=== PATIENT | female | born 1960 | race Caucasian/White ===

== ENCOUNTER 2020-09-09 11:24 | Emergency (ER) | payer BC, OTHER ==
--- OUTSIDE RECORDS SUMMARY | 2020-09-09 11:26 | XMS REPORT | Continuity of Care Document ---
:1960 Author Organization [facility] t Address [address] Estrada [address] [place] [id number] Care Team Providers Name Role Phone Unavailable Unavailable Unavailable Payers Payer Name Policy Type Policy Number Effective Date Expiration Date S ource Problems This patient has no known problems. Allergies, Adverse Reactions, Alerts This patient has no known allergies or adverse reactions. Medications This patient has no known medications. Procedures This patient has no known procedures. Results This patient has no known results.
[2020-09-09] MEDS ORDERED: HYDROCODONE/CHLORPHEN 5 ML/OSYR ONE (13:13)
--- NOTE | 2020-09-09 14:18 | RAD REPORT ---
EXAM DESCRIPTION: CT - Chest For Pe Angio - 09/09/2020 1:43 pm CLINICAL HISTORY: Chest pain. Chest pain;Cough COMPARISON: No comparisons TECHNIQUE: CT angiogram of the pulmonary arteries was performed with MIP. All CT scans are performed using dose optimization technique as appropriate and may include automated exposure control or mA/KV adjustment according to patient size. FINDINGS: No evidence of pulmonary thromboembolism. No acute aortic finding demonstrated. Moderately severe airspace opacities are present in both lung bases, nonspecific but would be compati ble with COVID-19 infection. No significant pericardial or pleural fluid. No concerning bony finding. IMPRESSION: No evidence of pulmonary thromboembolism. Moderately severe airspace opacities are present in both lung bases, nonspecific but would be compati ble with COVID-19 infection.
--- NOTE | 2020-09-09 14:56 | ER ---
Nurse's Notes [facility] Name: Mohan Gallo Age: 60 yrs Sex: Female : 1960 Arrival Date: 09/09/2020 Time: 11:27 Bed 5 Private MD: Brian Whelan Diagnosis: Pneumonia due to SARS-associated coronavirus Presentation: 09/09 12:00 Chief complaint: Patient states: Positive COVID-19 and negative chest x-ray at [facility] aa5 1 week ago. Pt states "I thought I was getting better but I am coughing, short of breath, my chest hurts, and I started with a fever again yesterday". 12:00 Coronavirus screen: Client presents with at least one sign or symptom that may indicate aa5 coronavirus-19. Standard/surgical mask placed on the client. Provider contacted for isolation considerations. Client reports previous positive COVID test result. Ebola Screen: Patient negative for fever greater than or equal to 101.5 degrees Fahrenheit, and additional compatible Ebola Virus Disease symptoms. Initial Sepsis Screen: Does the patient meet any 2 criteria? RR > 20 per min. HR > 90 bpm. Yes Does the patient have a suspected source of infection? Yes: Productive cough/pneumonia. Risk Assessment: Do you want to hurt yourself or someone else? Patient reports no desire to harm self or others. Onset of symptoms was August 2020. 12:00 Acuity: MATTEO 2 aa5 12:00 Method Of Arrival: Ambulatory aa5 Historical: - Allergies: 12:00 PENICILLINS; aa5 - PMHx: 12:00 Hypertension; Asthma; Thyroid problem; aa5 Screenin:31 Abuse screen: Denies threats or abuse. Nutritional screening: No deficits noted. em Tuberculosis screening: No symptoms or risk factors identified. Fall Risk None identified. Assessment: 12:50 General: Appears in no apparent distress. uncomfortable, Behavior is calm, cooperative, em appropriate for age, Reports fever for 12-24 hours, reports she is covid pos. with chest tightness and cough since last Saturday . Pain: Denies pain. Neuro: Level of Consciousness is awake, alert, obeys commands, Oriented to person, place, time, situation, Appropriate for age. Cardiovascular: Rhythm is sinus tachycardia. Respiratory: Reports shortness of breath at rest cough that is non-productive, Airway is patent Respiratory effort is even, unlabored, Respiratory pattern is regular, symmetrical, Breath sounds are diminished bilaterally. the patient has mild shortness of breath. Derm: Skin is intact, is healthy with good turgor, Skin is pink, warm \\T\\ dry. Musculoskeletal: Capillary refill < 3 seconds, Range of motion: intact in all extremities. 14:42 Reassessment: Patient appears in no apparent distress at this time. Patient and/or em family updated on plan of care and expected duration. Pain level reassessed. Patient is alert, oriented x 3, equal unlabored respirations, skin warm/dry/pink. Vital Signs: 12:00 BP 134 / 68; Pulse 105; Resp 26 S; Temp 100.5(O); Pulse Ox 92% on R/A; Weight 116.57 kg aa5 (R); Height 5 ft. 1 in. (154.94 cm) (R); Pain 7/10; 13:00 BP 120 / 62; Pulse 93; Resp 20; Pulse Ox 93% on R/A; em 12:00 Body Mass Index 48.56 (116.57 kg, 154.94 cm) aa5 ED Course: 11:27 Patient arrived in ED. ag5 11:27 Brian Whelan MD is Private Physician. ag5 11:53 Florence Burk[facility]C [facility]. snw 11:54 Chemo Evans MD is Attending Physician. snw 12:00 Arm band placed on Patient placed in an exam room, on a stretcher. aa5 12:00 Patient has correct armband on for positive identification. Placed in gown. Bed in low aa5 position. Call light in reach. Side rails up X2. 12:14 Anibal Leiva, TEMO is Primary Nurse. em 12:16 Triage completed. aa5 13:05 Inserted saline lock: 22 gauge in right antecubital area, using aseptic technique. em Blood collected. 13:44 CT Chest For PE Angio In Process Unspecified. EDMS 14:55 Brian Whelan MD is Referral Physician. snw 15:29 No provider procedures requiring assistance completed. IV discontinued, intact, em bleeding controlled, No redness/swelling at site. Pressure dressing applied. Administered Medications: 13:00 Drug: Tussionex Pennkinetic ER 5 ml Route: PO; em 13:55 Follow up: Response: No adverse reaction; Marked relief of symptoms em 15:28 Drug: SOLU-Medrol 80 mg Route: IM; Site: right gluteus; em 15:33 Follow up: Response: No adverse reaction em Outcome: 14:55 Discharge ordered by MD. lara 15:29 Discharged to home ambulatory. em 15:29 Condition: stable 15:29 Discharge instructions given to patient, Instructed on discharge instructions, follow up and referral plans. medication usage, Demonstrated understanding of instructions, follow-up care, medications, Prescriptions given X 1. 15:34 Patient left the ED. em Signatures: Dispatcher [employer] EDMS Florence Burkett, ALFIE-C PRODUCTION EXPEDITER-Donaw Anibal Leiva RN RN Julissa Peña RN RN aa5 Tiffanie Crouch ag5 Corrections: (The following items were deleted from the chart) 12:17 12:00 BP 134 / 68; Pulse 105bpm; Resp 18bpm; Spontaneous; Pulse Ox 92% RA; Temp 100.5F aa5 Oral; 116.57 kg Reported; Height 5 ft. 1 in. Reported; BMI: 48.5; Pain 7/10; aa5
--- NOTE | 2020-09-09 14:56 | EDPHYS ---
Physician Documentation [facility] Name: Mohan Gallo Age: 60 yrs Sex: Female : 1960 Arrival Date: 09/09/2020 Time: 11:27 Bed 5 Private MD: Brian Whelan ED Physician Chemo Evans HPI: 09/09 14:17 This 60 yrs old Female presents to ER via Ambulatory with complaints of snw Breathing Difficulty, COVID+. 14:17 The patient has shortness of breath at rest, worsens with cough. Onset: The snw symptoms/episode began/occurred gradually, and became persistent. Duration: The symptoms are continuous. The patient's shortness of breath is aggravated by coughing. Associated signs and symptoms: Pertinent positives: chest pain, non-productive cough, fever. Severity of symptoms: At their worst the symptoms were moderate. dx with CoVid 19 last week. Tx with course of zithromax and 7 days of decadron. finished today. as noted. Historical: - Allergies: 12:00 PENICILLINS; aa5 - PMHx: 12:00 Hypertension; Asthma; Thyroid problem; aa5 ROS: 14:15 Constitutional: Negative for fever, chills, and weight loss, Eyes: Negative for injury, snw pain, redness, and discharge, ENT: Negative for injury, pain, and discharge, Neck: Negative for injury, pain, and swelling, Cardiovascular: Negative for chest pain, palpitations, and edema, Respiratory: Positive for shortness of breath, cough, wheezing, and pleuritic chest pain, Abdomen/GI: Negative for abdominal pain, nausea, vomiting, diarrhea, and constipation, Back: Negative for injury and pain, : Negative for injury, bleeding, discharge, and swelling, MS/Extremity: Negative for injury and deformity, Skin: Negative for injury, rash, and discoloration, Neuro: Negative for headache, weakness, numbness, tingling, and seizure, Psych: Negative for depression, anxiety, suicide ideation, homicidal ideation, and hallucinations. Exam: 14:12 Head/Face: Normocephalic, atraumatic. Eyes: Pupils equal round and reactive to light, snw extra-ocular motions intact. Lids and lashes normal. Conjunctiva and sclera are non-icteric and not injected. Cornea within normal limits. Periorbital areas with no swelling, redness, or edema. ENT: Nares patent. No nasal discharge, no septal abnormalities noted. Tympanic membranes are normal and external auditory canals are clear. Oropharynx with no redness, swelling, or masses, exudates, or evidence of obstruction, uvula midline. Mucous membranes moist. Neck: Trachea midline, no thyromegaly or masses palpated, and no cervical lymphadenopathy. Supple, full range of motion without nuchal rigidity, or vertebral point tenderness. No Meningismus. Chest/axilla: Normal chest wall appearance and motion. Nontender with no deformity. No lesions are appreciated. Cardiovascular: Regular rate and rhythm with a normal S1 and S2. No gallops, murmurs, or rubs. Normal PMI, no JVD. No pulse deficits. 14:12 Abdomen/GI: Soft, non-tender, with normal bowel sounds. No distension or tympany. No guarding or rebound. No evidence of tenderness throughout. Back: No spinal tenderness. No costovertebral tenderness. Full range of motion. Skin: Warm, dry with normal turgor. Normal color with no rashes, no lesions, and no evidence of cellulitis. MS/ Extremity: Pulses equal, no cyanosis. Neurovascular intact. Full, normal range of motion. Neuro: Awake and alert, GCS 15, oriented to person, place, time, and situation. Cranial nerves II-XII grossly intact. Motor strength 5/5 in all extremities. Sensory grossly intact. Cerebellar exam normal. Normal gait. Psych: Awake, alert, with orientation to person, place and time. Behavior, mood, and affect are within normal limits. 14:12 Constitutional: The patient appears alert, awake. 14:12 Respiratory: the patient does not display signs of respiratory distress, Respirations: normal, Breath sounds: bronchial sounds, that are moderate, are heard diffusely, SpO2 93-94% room air. Vital Signs: 12:00 BP 134 / 68; Pulse 105; Resp 26 S; Temp 100.5(O); Pulse Ox 92% on R/A; Weight 116.57 kg aa5 (R); Height 5 ft. 1 in. (154.94 cm) (R); Pain 7/10; 13:00 BP 120 / 62; Pulse 93; Resp 20; Pulse Ox 93% on R/A; em 12:00 Body Mass Index 48.56 (116.57 kg, 154.94 cm) aa5 MDM: 12:06 Patient medically screened. snw 15:01 Data reviewed: vital signs, nurses notes. Data interpreted: Pulse oximetry: on room air snw is 93 %. Interpretation: acceptable. Counseling: I had a detailed discussion with the patient and/or guardian regarding: the historical points, exam findings, and any diagnostic results supporting the discharge/admit diagnosis, radiology results, the need for outpatient follow up, to return to the emergency department if symptoms worsen or persist or if there are any questions or concerns that arise at home. 09/09 15:29 Order name: CREATININE WHOLE BLOOD; Complete Time: 15:34 EDMS 09/09 12:46 Order name: CT Chest For PE Angio; Complete Time: 14:20 snw 09/09 12:50 Order name: Labs - recollect needed: green top for CT; Complete Time: 13:06 iw Administered Medications: 13:00 Drug: Tussionex Pennkinetic ER 5 ml Route: PO; em 13:55 Follow up: Response: No adverse reaction; Marked relief of symptoms em 15:28 Drug: SOLU-Medrol 80 mg Route: IM; Site: right gluteus; em 15:33 Follow up: Response: No adverse reaction em Disposition: 18:04 Co-signature as Attending Physician, Chemo Evans MD I agree with the assessment and kdr plan of care. Disposition: 09/09/20 14:55 Discharged to Home. Impression: Pneumonia due to SARS-associated coronavirus. - Condition is Stable. - Discharge Instructions: Severe Acute Respiratory Syndrome (SARS), Aspirin and Your Heart, Rehydration, Adult, COVID-19. - Prescriptions for Prednisone 20 mg Oral Tablet - take 2 tablet by ORAL route once daily for 5 days; 10 tablet. - Medication Reconciliation Form, Thank You Letter, Antibiotic Education, Prescription Opioid Use form. - Follow up: Emergency Department; When: As needed; Reason: Worsening of condition. Follow up: Brian Whelan MD; When: 7 - 10 days; Reason: Recheck today's complaints, Continuance of care, Re-evaluation by your physician. Signatures: Dispatcher [employer] [facility] Chemo Evans MD MD kdr Waters, Shelly, FENCE INSTALLER FOREMAN-C FENCE INSTALLER FOREMAN-Donaw Anibal Leiva, RN RN Parul Kincaid RN RN iw Julissa Irizarry, RN RN aa5 Corrections: (The following items were deleted from the chart) 15:34 14:55 09/09/2020 14:55 Discharged to Home. Impression: Pneumonia due to SARS-associated em coronavirus. Condition is Stable. Forms are Medication Reconciliation Form, Thank You Letter, Antibiotic Education, Prescription Opioid Use. Follow up: Emergency Department; When: As needed; Reason: Worsening of condition. Follow up: Brian Whelan; When: 7 - 10 days; Reason: Recheck today's complaints, Continuance of care, Re-evaluation by your physician. snw
[2020-09-09] MEDS ORDERED: METHYLPREDNISOLONE 40 MG INJ ONE (15:36)
[2020-09-09 15:45] VITALS: TEMP 100.5
[2020-09-09 15:46] VITALS: BP 120/62; O2SAT 93
== END 2020-09-09 15:34 | disposition home or self-care (01) ==
LOC: ER 11:24
DX: U07.1 COVID-19 (principal); J12.89 Other viral pneumonia; I10 Essential (primary) hypertension; Z88.0 Allergy status to penicillin
CPT/HCPCS: 82565; 71275; 96372; 99284; Q9967; J2920

== ENCOUNTER 2020-09-11 10:01 | Emergency (ER) | payer BC, OTHER ==
--- OUTSIDE RECORDS SUMMARY | 2020-09-11 10:02 | XMS REPORT | Continuity of Care Document ---
:1960 Author Organization [facility] t Address [address] Estrada [address] [place] [address] Care Team Providers Name Role Phone Unavailable [...]
[2020-09-11 12:28] LABS: Absolute Lymphocytes (CBC) 0.9 K/uL (0.7-4.9); Basophils % 0.2 % (0-1.3); Hematocrit 40.1 % (36.0-45.0); Lymphocytes % 5.6 % (15.3-44.8); MPV 7.8 fL (7.6-11.3); RBC Red Blood Cell Count 4.72 M/uL (3.86-4.86)
[2020-09-11] MEDS ORDERED: METHYLPREDNISOLONE 125 MG INJ ONE (12:38)
[2020-09-11] MEDS ORDERED: MAGNESIUM SULFATE 1 gm IVPB 1 GM/100 ML BAG IV ONE (12:39)
[2020-09-11] MEDS ORDERED: LEVALBUTEROL 1.25 MG/3 ML NEB ONE (12:39)
[2020-09-11] MEDS ORDERED: ACETAMINOPHEN 325 MG TABLET ONE (12:39)
[2020-09-11 12:50] LABS: Bilirubin Total 0.4 mg/dL (0.2-1.0); C-Reactive Protein 56.1 mg/L (<3.00); Potassium 4.6 mmol/L (3.5-5.1); Protein, Total 8.2 g/dL (6.4-8.2)
[2020-09-11 13:11] LABS: Blood Morphology Comment NOT SEEN (NOT SEEN); Platelet Estimate ADEQ; White Blood Cell Scan OK (OK)
[2020-09-11] MEDS ORDERED: NA CHLORIDE 0.9% 1,000 ML ONE (13:14)
--- NOTE | 2020-09-11 13:21 | RAD REPORT ---
EXAM DESCRIPTION: RAD - Chest Single View - 09/11/2020 12:21 pm CLINICAL HISTORY: shortness of breath, positive COVID test COMPARISON: CT chest August TECHNIQUE: AP portable chest image was obtained 09/11/2020 12:21 pm . FINDINGS: Lung volumes are low. Bilateral airspace opacification is present along with interstitial thickening. Pattern is generally similar to the September 09 study. No improvement has occurred. Signi ficant progression of disease is doubtful. Heart and vasculature are normal. No measurable pleural effusion and no pneumothorax. No acute bony abnormality seen. No acute aortic findings suspected. IMPRESSION: Bilateral airspace disease pattern. This is nonspecific but compatible with a COVID-19 p neumonia. Parenchymal findings are not substantially different from the September 09 CT study.
--- NOTE | 2020-09-11 15:31 | ER ---
Nurse's Notes [facility] Name: Mohan Gallo Age: 60 yrs Sex: Female : 1960 Arrival Date: 09/11/2020 Time: 10:02 Bed 2 Private MD: Diagnosis: Coronavirus infection, unspecified Presentation: 09/11 10:45 Chief complaint: Patient states: tested positive for COVID on the Saturday before iw Sean, has been SOB and has a cough, was diagnosed with pneumonia on the and was sent home on steroids, pt states she can;t fell her fingers. Coronavirus screen: Client presents with at least one sign or symptom that may indicate coronavirus-19. Standard/surgical mask placed on the client. Provider contacted for isolation considerations. Client reports previous positive COVID test result. Ebola Screen: Patient negative for fever greater than or equal to 101.5 degrees Fahrenheit, and additional compatible Ebola Virus Disease symptoms Patient denies exposure to infectious person. Patient denies travel to an Ebola-affected area in the 21 days before illness onset. No symptoms or risks identified at this time. Initial Sepsis Screen: Does the patient meet any 2 criteria? No. Patient's initial sepsis screen is negative. Does the patient have a suspected source of infection? No. Patient's initial sepsis screen is negative. Risk Assessment: Do you want to hurt yourself or someone else? Patient reports no desire to harm self or others. Onset of symptoms was September 02, 2020. 10:45 Method Of Arrival: Wheelchair iw 10:45 Acuity: MATTEO 3 iw Triage Assessment: 11:45 General: Appears uncomfortable, obese. Respiratory: Reports shortness of breath at rest ae4 on exertion cough that is Onset: The symptoms/episode began/occurred gradually, the patient has moderate shortness of breath. Historical: - Allergies: 10:49 PENICILLINS; iw - PMHx: 10:49 Asthma; Hypertension; Thyroid problem; iw - Immunization history:: Adult Immunizations up to date. - Social history:: Smoking status: Patient denies any tobacco usage or history of. Screenin:06 Abuse screen: Denies threats or abuse. Nutritional screening: No deficits noted. ae4 Tuberculosis screening: No symptoms or risk factors identified. Fall Risk None identified. Assessment: 11:40 General: Appears uncomfortable, obese, Behavior is cooperative, anxious, restless. ae4 Neuro: Level of Consciousness is awake, alert, obeys commands, Oriented to person, place, time, situation. Cardiovascular: Heart tones S1 S2 present Rhythm is regular. Respiratory: Airway is patent Breath sounds are diminished bilaterally. GI: No signs and/or symptoms were reported involving the gastrointestinal system. Abdomen is round obese. : Urine is clear. EENT: No signs and/or symptoms were reported regarding the EENT system. Oral mucosa is moist. Derm: Skin is pale. Musculoskeletal: Reports Generalized weakness. 12:52 Pain: Complains of pain in Generalized body aches. Respiratory: Airway is patent ae4 Respiratory effort is shallow, Rapid, mildly labored. 13:53 Reassessment: Provider at bedside discussing plan of care. ae4 14:45 Reassessment: Patient appears in no apparent distress at this time. Patient assisted ae4 onto bedpan to urinate. Vital Signs: 10:45 BP 106 / 58; Pulse 84; Resp 16 S; Temp 100.1(TE); Pulse Ox 89% on R/A; Weight 115.21 iw kg; Height 5 ft. 1 in. (154.94 cm); 12:34 BP 122 / 68; Pulse 122; Resp 24; Pulse Ox 96% on 2 lpm NC; ae4 12:51 BP 121 / 56; Pulse 102; Resp 24; Pulse Ox 96% on 2 lpm NC; ae4 14:34 BP 133 / 68; Pulse 70; Resp 20; Pulse Ox 97% on 1 lpm NC; ae4 10:45 Body Mass Index 47.99 (115.21 kg, 154.94 cm) iw ED Course: 10:02 Patient arrived in ED. as 10:45 Mert Robelro PA is PHCP. jmm 10:45 Chuck Ramos MD is Attending Physician. jmm 10:49 Triage completed. iw 10:49 Arm band placed on. iw 11:35 Bed in low position. Call light in reach. Side rails up X2. Adult w/ patient. Cardiac ae4 monitor on. Pulse ox on. NIBP on. Lights dimmed. 12:19 Bismark Doty, TEMO is Primary Nurse. ae4 12:21 Chest Single View XRAY In Process Unspecified. EDMS 13:31 Inserted saline lock: 22 gauge in right antecubital area, using aseptic technique. ae4 ,using aseptic technique. By [employer] field kiln burner Blood collected. 16:08 No provider procedures requiring assistance completed. IV discontinued, intact, ae4 bleeding controlled, No redness/swelling at site. Pressure dressing applied. Administered Medications: 12:31 Drug: Xopenex (3) 1.25 mg Route: Inhalation; ae4 12:35 Drug: SOLU-Medrol 125 mg Route: IVP; Site: right antecubital; ae4 16:10 Follow up: Response: No adverse reaction ae4 12:45 Drug: Magnesium Sulfate 1 grams Route: IVPB; Infused Over: 1 hrs; Site: right ae4 antecubital; 13:45 Follow up: IV Status: Completed infusion; IV Intake: 100ml ae4 12:50 Drug: Tylenol 650 mg Route: PO; ae4 16:09 Follow up: Response: Temperature is decreased; Pain is decreased ae4 13:00 Drug: NS 0.9% 1000 ml Route: IV; Rate: 1 bolus; Site: left antecubital; ae4 14:00 Follow up: IV Status: Completed infusion; IV Intake: 1000ml ae4 Intake: 13:45 IV: 100ml; Total: 100ml. ae4 14:00 IV: 1000ml; Total: 1100ml. ae4 Outcome: 15:29 Discharge ordered by . hiram 16:09 Discharged to home via wheelchair, with significant other. ae4 16:09 Condition: stable 16:09 Discharge instructions given to patient, significant other, Instructed on discharge instructions, follow up and referral plans. medication usage, Demonstrated understanding of instructions, follow-up care, medications, Prescriptions given X 1. 16:11 Patient left the ED. ae4 Signatures: Dispatcher [employer] EDMS Mert Roblero PA PA jmm Martinez, Amelia as Williams, Irene, RN RN iw Elliott, Andrea, RN RN ae4 Corrections: (The following items were deleted from the chart) 13:32 13:31 Inserted saline lock: 22 gauge in left antecubital area, using aseptic technique. ae4 ,using aseptic technique. By [employer] Medical[employer] kiln burner Blood collected. ae4
--- NOTE | 2020-09-11 15:31 | EDPHYS ---
Physician Documentation [facility] Name: Mohan Gallo Age: 60 yrs Sex: Female : 1960 Arrival Date: 09/11/2020 Time: 10:02 Bed 2 Private MD: ED Physician Chuck Ramos HPI: 09/11 10:57 This 60 yrs old Female presents to ER via Wheelchair with complaints of jmm Shortness Of Breath - covid+. 10:57 The patient has shortness of breath at rest. Onset: The symptoms/episode began/occurred jmm gradually. The patient's shortness of breath is aggravated by coughing, exertion, light activity. Associated signs and symptoms: Pertinent negatives:. This is a 60 year old female with a history of asthma, htn that pesents to the ED with complaints of shortness of breath. Roughly 10 days ago diagnosed. Complains of worsening shortness of breath with low home pulse ox at home. . Historical: - Allergies: 10:49 PENICILLINS; iw - PMHx: 10:49 Asthma; Hypertension; Thyroid problem; iw - Immunization history:: Adult Immunizations up to date. - Social history:: Smoking status: Patient denies any tobacco usage or history of. ROS: 10:57 Cardiovascular: Negative for chest pain, palpitations, and edema. jmm 10:57 Constitutional: Positive for body aches, chills, fever. 10:57 Respiratory: Positive for cough, shortness of breath. 10:57 All other systems are negative. Exam: 10:57 Constitutional: This is a well developed, well nourished patient who is awake, alert, jmm and in no acute distress. Head/Face: atraumatic. Eyes: EOMI, no conjunctival erythema appreciated ENT: Moist Mucus Membranes Neck: Trachea midline, Supple Chest/axilla: Normal chest wall appearance and motion. Cardiovascular: Regular rate and rhythm. No edema appreciated Respiratory: Normal respirations, no respiratory distress appreciated Abdomen/GI: Non distended, soft Back: Normal ROM Skin: General appearance color normal MS/ Extremity: Moves all extremities, no obvious deformities appreciated, no edema noted to the lower extremities Neuro: Awake and alert, normal gait Psych: Behavior is normal, Mood is normal, Patient is cooperative and pleasant Vital Signs: 10:45 BP 106 / 58; Pulse 84; Resp 16 S; Temp 100.1(TE); Pulse Ox 89% on R/A; Weight 115.21 iw kg; Height 5 ft. 1 in. (154.94 cm); 12:34 BP 122 / 68; Pulse 122; Resp 24; Pulse Ox 96% on 2 lpm NC; ae4 12:51 BP 121 / 56; Pulse 102; Resp 24; Pulse Ox 96% on 2 lpm NC; ae4 14:34 BP 133 / 68; Pulse 70; Resp 20; Pulse Ox 97% on 1 lpm NC; ae4 10:45 Body Mass Index 47.99 (115.21 kg, 154.94 cm) iw MDM: 11:14 Patient medically screened. [facility] 15:27 Data reviewed: vital signs, nurses notes. ED course: Symptoms have improved in the ED. [facility] Pulse ox is WNL on discharge. Advised to continue home meds with addition of supplements. Will add xopenex nebulizer. Advised to follow up with pcp and otherwise given strict return precautions. Patient understood and agrees with the plan of care. . 09/11 10:57 Order name: CBC with Diff; Complete Time: 13:24 [facility] 09/11 10:57 Order name: CMP; Complete Time: 12:52 [facility] 09/11 10:57 Order name: CRP; Complete Time: 12:52 [facility] 09/11 12:05 Order name: Chest Single View XRAY; Complete Time: 13:24 [facility] 09/11 13:11 Order name: CBC Smear Scan; Complete Time: 13:24 [facility] 09/11 10:57 Order name: Saline Lock; Complete Time: 12:20 [facility] Administered Medications: 12:31 Drug: Xopenex (3) 1.25 mg Route: Inhalation; ae4 12:35 Drug: SOLU-Medrol 125 mg Route: IVP; Site: right antecubital; ae4 16:10 Follow up: Response: No adverse reaction ae4 12:45 Drug: Magnesium Sulfate 1 grams Route: IVPB; Infused Over: 1 hrs; Site: right ae4 antecubital; 13:45 Follow up: IV Status: Completed infusion; IV Intake: 100ml ae4 12:50 Drug: Tylenol 650 mg Route: PO; ae4 16:09 Follow up: Response: Temperature is decreased; Pain is decreased ae4 13:00 Drug: NS 0.9% 1000 ml Route: IV; Rate: 1 bolus; Site: left antecubital; ae4 14:00 Follow up: IV Status: Completed infusion; IV Intake: 1000ml ae4 Disposition: 16:36 Co-signature as Attending Physician, Chuck Ramos MD. rn Disposition: 09/11/20 15:29 Discharged to Home. Impression: Coronavirus infection, unspecified. - Condition is Stable. - Discharge Instructions: COVID-19. - Prescriptions for Xopenex 1.25 mg/3 mL Inhalation Solution for Nebulization - inhale 1 unit by NEBULIZATION route every 8 hours As needed; 1 box. - Medication Reconciliation Form, Thank You Letter, Antibiotic Education, Prescription Opioid Use form. - Follow up: Private Physician; When: 2 - 3 days; Reason: Recheck today's complaints, Continuance of care, Re-evaluation by your physician. - Notes: Please take -10,000 IU of vitamin D3 daily -1000 MG of NAC twice a day -500 MG of Quercetin twice a day - 50 mg of Zinc daily Signatures: Dispatcher [employer] EDMS Mert Roblero PA PA jmm Williams, Irene, RN Chuck Barlow MD MD rn Elliott, Andrea, RN RN ae4 Corrections: (The following items were deleted from the chart) 16:11 15:29 09/11/2020 15:29 Discharged to Home. Impression: Coronavirus infection, ae4 unspecified. Condition is Stable. Forms are Medication Reconciliation Form, Thank You Letter, Antibiotic Education, Prescription Opioid Use. Follow up: Private Physician; When: 2 - 3 days; Reason: Recheck today's complaints, Continuance of care, Re-evaluation by your physician. hiram
[2020-09-11 16:34] VITALS: TEMP 100.1
[2020-09-11 16:38] VITALS: BP 133/68; O2SAT 97
== END 2020-09-11 16:11 | disposition home or self-care (01) ==
LOC: ER 10:01
DX: U07.1 COVID-19 (principal); I10 Essential (primary) hypertension; J45.909 Unspecified asthma, uncomplicated; Z88.0 Allergy status to penicillin
CPT/HCPCS: 96365; 85025; 36415; 80053; 86140; 71045; 96375; 99285; J3475; J7030; J2930

== ENCOUNTER 2020-09-13 11:06 | Inpatient (IN) | payer BC, OTHER ==
--- OUTSIDE RECORDS SUMMARY | 2020-09-13 11:08 | XMS REPORT | Continuity of Care Document ---
:1960 Author Organization [facility] t Address [address] [place] [address] [place] [id number] Care Team Providers Name Role Phone Unavailable [...]
[2020-09-13] MEDS ORDERED: METHYLPREDNISOLONE 125 MG INJ ONE (11:50)
[2020-09-13] MEDS ORDERED: MAGNESIUM SULFATE 1 gm IVPB 1 GM/100 ML BAG IV ONE (11:50)
[2020-09-13] MEDS ORDERED: LEVALBUTEROL 1.25 MG/3 ML NEB ONE (11:50)
[2020-09-13 11:53] LABS: Absolute Lymphocytes (CBC) 1.1 K/uL (0.7-4.9); Basophils % 0.1 % (0-1.3); Hematocrit 36.2 % (36.0-45.0); Lymphocytes % 6.6 % (15.3-44.8); MPV 7.5 fL (7.6-11.3); RBC Red Blood Cell Count 4.29 M/uL (3.86-4.86)
[2020-09-13 12:07] LABS: Albumin 2.6 g/dL (3.4-5.0); Bilirubin Total 0.5 mg/dL (0.2-1.0); Protein, Total 7.6 g/dL (6.4-8.2)
[2020-09-13 12:23] LABS: Blood Morphology Comment NOT SEEN (NOT SEEN); Platelet Estimate ADEQ; Platelets, Giant FEW
[2020-09-13 12:34] LABS: Arterial Blood Carboxyhemoglob 1.2 % (0-1.5); Blood Gas Oxyhemoglobin 86.2 % (94-97); Blood O2 Saturation 88.1 % (92-98.5)
[2020-09-13] MEDS ORDERED: NA CHLORIDE 0.9% 1,000 ML ONE (12:44)
--- NOTE | 2020-09-13 12:56 | RAD REPORT ---
EXAM DESCRIPTION: CT - Chest For Pe Angio - 09/13/2020 12:45 pm CLINICAL HISTORY: shortness of breath, COVID positive COMPARISON: Chest For Pe Angio dated 09/09/2020; Chest Single View dated 09/11/2020 TECHNIQUE: Dynamically enhanced 3 mm thick images of the chest were obtained during administration o f approximately 150mL Isovue 370 IV contrast. Coronal and oblique MIP reconstruction images were gene rated and reviewed. Exam utilizes a protocol to evaluate the pulmonary arterial tree. All CT scans are performed using dose optimization technique as appropriate and may include automated exposure control or mA/KV adjustment according to patient size. FINDINGS: No pulmonary emboli are identified. The aorta as imaged shows no acute or suspicious finding. No pericardial thickening or effusion. Numerous ground-glass opacities are scattered throughout the lung brooks. Air bronchograms are seen. No cavitation or focal mass lesion. No pleural effusion or pleural thickening. No mediastinal or hilar suspicious masses. No chest wall masses or abnormal axillary lymphadenopathy. IMPRESSION: No pulmonary emboli identified. Advanced COVID-19 pneumonia showing progression of disease since September 09.
--- NOTE | 2020-09-13 13:01 | ER ---
Nurse's Notes [facility] Name: Mohan Gallo Age: 60 yrs Sex: Female : 1960 Arrival Date: 09/13/2020 Time: 11:11 Bed 14 Private MD: Diagnosis: Coronavirus infection, unspecified;Hypoxia Presentation: 09/13 11:10 Chief complaint: EMS states: COVID+ x 10 days, reports extreme fatigue and increased jl7 shortness of breath, O2 on arrival 92% on RA, placed on non-rebreather and O2 at 97%, pt continually coughing in route, lungs clear on auscultation. 11:10 Coronavirus screen: Client denies travel out of the [place] in the last 14 days. shortness jl7 of breath, Client reports previous positive COVID test result. Date of collection: September 03, 2020 results are located within the EHR/EMR. Staff notified of need for isolation. Ebola Screen: No symptoms or risks identified at this time. Initial Sepsis Screen: Does the patient meet any 2 criteria? No. Patient's initial sepsis screen is negative. Does the patient have a suspected source of infection? No. Patient's initial sepsis screen is negative. Risk Assessment: Do you want to hurt yourself or someone else? Patient reports no desire to harm self or others. Onset of symptoms was September 03, 2020. Care prior to arrival: Oxygen administered. via a non-rebreather mask. Transition of care: patient was not received from another setting of care. 11:10 Method Of Arrival: EMS: [facility] 7 11:10 Acuity: MATTEO 3 jl7 Triage Assessment: 11:10 General: Appears in no apparent distress. uncomfortable, Behavior is cooperative, jl7 anxious. Pain: Complains of pain in diaphragm Quality of pain is described as "Sore from coughing.". Neuro: Level of Consciousness is awake, alert, obeys commands, Oriented to person, place, time, situation. Cardiovascular: Patient's skin is warm and dry. Respiratory: Reports shortness of breath cough that is non-productive, dry, hacking, Onset: The symptoms/episode began/occurred x 10 days, the patient has moderate shortness of breath. Derm: Skin is pink, warm \\T\\ dry. Historical: - Allergies: 11:58 PENICILLINS; jl7 - Home Meds: 11:58 aspirin 81 mg Oral TbEC [Active]; rosuvastatin oral oral [Active]; triamterene oral jl7 oral [Active]; Ventolin Nebulizer [Active]; Synthroid Oral [Active]; - PMHx: 11:58 Asthma; Hypertension; Thyroid problem; jl7 - Immunization history:: Adult Immunizations unknown. - Social history:: Smoking status: Patient denies any tobacco usage or history of. Screenin:10 Abuse screen: Denies threats or abuse. Denies injuries from another. Nutritional jl7 screening: No deficits noted. Tuberculosis screening: No symptoms or risk factors identified. Fall Risk IV access (20 points). Total Ford Fall Scale indicates No Risk (0-24 pts). Assessment: 11:10 General: See triage assessment. Cardiovascular: Heart tones present Rhythm is regular. jl7 Respiratory: Airway is patent Respiratory effort is even, labored, Respiratory pattern is symmetrical, tachypnea Breath sounds are clear bilaterally. 11:59 Reassessment: ERP at bedside assessing pt. jl7 13:06 Reassessment: Hospitalist at bedside assessing pt. jl7 Vital Signs: 11:10 BP 136 / 62; Pulse 77; Resp 24 S; Temp 97.1(O); Pulse Ox 90% on R/A; jl7 12:02 BP 130 / 61; Pulse 89; Resp 25 S; Pulse Ox 96% on Nebulizer Mask; jl7 12:30 Pulse Ox 89% on R/A; jl7 13:06 BP 142 / 77; Pulse 95; Resp 19 S; Pulse Ox 96% on 2 lpm NC; jl7 ED Course: 11:10 Arm band placed on right wrist. jl7 11:10 Patient has correct armband on for positive identification. Placed in gown. Bed in low jl7 position. Call light in reach. Side rails up X2. project manager [employer] on. Pulse ox on. NIBP on. 11:11 Patient arrived in ED. jl7 11:12 Mert Roblero PA is PHCP. [facility] 11:12 Chuck Ramos MD is Attending Physician. [facility] 11:13 Myrtle Jerome RN is Primary Nurse. jl7 11:35 Initial lab(s) drawn, by nv, sent to lab. Inserted saline lock: 22 gauge in right hand, jl7 using aseptic technique. Blood collected. 11:56 Triage completed. jl7 12:34 First set of blood cultures drawn by me. Inserted saline lock: 20 gauge in left 3 antecubital area, using aseptic technique. Blood collected. 12:38 Second set of blood cultures drawn by me. 3 12:41 Procalcitonin Sent. dh3 12:41 CRP Sent. dh3 12:42 Lactate Sent. dh3 12:45 CT Chest For PE Angio In Process Unspecified. EDMS 13:01 Willy Morgan is Hospitalizing Provider. [facility] 13:06 No provider procedures requiring assistance completed. Patient admitted, IV remains in jl7 place. intact, No redness/swelling at site. Administered Medications: 11:35 Drug: Magnesium Sulfate 1 grams Route: IVPB; Infused Over: 1 hrs; Site: right hand; jl7 12:35 Follow up: Response: No adverse reaction; IV Status: Completed infusion jl7 11:37 Drug: SOLU-Medrol 125 mg Route: IVP; Site: right hand; jl7 13:07 Follow up: Response: No adverse reaction jl7 11:45 Drug: Xopenex (3) 1.25 mg Route: Inhalation; jl7 12:10 Follow up: Response: No adverse reaction jl7 12:55 Drug: NS 0.9% 1000 ml Route: IV; Rate: 1 bolus; Site: right hand; jl7 14:30 Follow up: Response: No adverse reaction; IV Status: Completed infusion; IV Intake: [facility] 1000ml Intake: 14:30 IV: 1000ml; Total: 1000ml. 7 Outcome: 13:01 Decision to Hospitalize by Provider. jmm 15:47 Admitted to ER Hold. Please see [facility] for further documentation. jl7 15:47 Condition: stable 15:47 Discharge instructions given to patient, Instructed on the need for admit, Demonstrated understanding of instructions. 09/14 18:47 Patient left the ED. ss Signatures: Dispatcher [employer] EDMS Mert Roblero PA PA jmm Smirch, Shelby RN RN Myrtle Srivastava RN RN jl7 Nurys Stewart 3 Corrections: (The following items were deleted from the chart) 09/13 13:06 12:02 BP 130 / 61; Pulse 89bpm; Resp 25bpm; Spontaneous; Pulse Ox 96% Non-rebreather jl7 mask; jl7
--- NOTE | 2020-09-13 13:02 | EDPHYS ---
Physician Documentation [facility] Name: Mohan Gallo Age: 60 yrs Sex: Female : 1960 Arrival Date: 09/13/2020 Time: 11:11 Bed 14 Private MD: ED Physician Chuck Ramos HPI: 09/13 11:12 This 60 yrs old Female presents to ER via EMS with complaints of Shortness Of jmm Breath - COVID+. 11:12 Onset: The symptoms/episode began/occurred gradually. The patient's shortness of breath jmm has no apparent modifying factors. Associated signs and symptoms: Pertinent positives: fever. This is a 60 year old female with a history of asthma, htn, that presents to the ED with complaints of cough, shortness of breath worsening since her previous ED visit. Patient diagnosed approx 10 days ago. . Historical: - Allergies: 11:58 PENICILLINS; jl7 - Home Meds: 11:58 aspirin 81 mg Oral TbEC [Active]; rosuvastatin oral oral [Active]; triamterene oral jl7 oral [Active]; Ventolin Nebulizer [Active]; Synthroid Oral [Active]; - PMHx: 11:58 Asthma; Hypertension; Thyroid problem; jl7 - Immunization history:: Adult Immunizations unknown. - Social history:: Smoking status: Patient denies any tobacco usage or history of. ROS: 11:12 Constitutional: Positive for fever. jmm 11:12 Respiratory: Positive for cough, shortness of breath, wheezing. 11:12 All other systems are negative. Exam: 11:12 Constitutional: This is a well developed, well nourished patient who is awake, alert, jmm and in no acute distress. Head/Face: atraumatic. Eyes: EOMI, no conjunctival erythema appreciated ENT: Moist Mucus Membranes Neck: Trachea midline, Supple Chest/axilla: Normal chest wall appearance and motion. Cardiovascular: Regular rate and rhythm. No edema appreciated 11:12 Back: Normal ROM Skin: General appearance color normal MS/ Extremity: Moves all extremities, no obvious deformities appreciated, no edema noted to the lower extremities Neuro: Awake and alert, normal gait Psych: Behavior is normal, Mood is normal, Patient is cooperative and pleasant 11:12 Cardiovascular: Rate: normal, Rhythm: regular, Pulses: no pulse deficits are appreciated. 11:12 Respiratory: mild respiratory distress is noted, Respirations: labored breathing, that is mild, Breath sounds: decreased breath sounds, are scattered. Vital Signs: 11:10 BP 136 / 62; Pulse 77; Resp 24 S; Temp 97.1(O); Pulse Ox 90% on R/A; jl7 12:02 BP 130 / 61; Pulse 89; Resp 25 S; Pulse Ox 96% on Nebulizer Mask; jl7 12:30 Pulse Ox 89% on R/A; jl7 13:06 BP 142 / 77; Pulse 95; Resp 19 S; Pulse Ox 96% on 2 lpm NC; jl7 MDM: 11:12 Patient medically screened. [facility] 12:56 Data reviewed: vital signs, nurses notes. Counseling: I had a detailed discussion with [facility] the patient and/or guardian regarding: the historical points, exam findings, and any diagnostic results supporting the discharge/admit diagnosis, lab results, radiology results, the need for further work-up and treatment in the hospital. ED course: I discussed the patient with Dr. Morgan whom accepted the patient for admission. . 09/13 11:13 Order name: CBC with Diff; Complete Time: 12:31 [facility] 09/13 11:13 Order name: CMP; Complete Time: 12:18 [facility] 09/13 11:43 Order name: ABG; Complete Time: 12:44 [facility] 09/13 12:19 Order name: CRP; Complete Time: 13:29 [facility] 09/13 12:20 Order name: Procalcitonin; Complete Time: 13:37 [facility] 09/13 12:20 Order name: Lactate; Complete Time: 13:06 [facility] 09/13 12:20 Order name: Blood Culture Adult (2) [facility] 09/13 12:23 Order name: Manual Differential; Complete Time: 12:31 [facility] 09/13 16:27 Order name: Ferritin; Complete Time: 16:29 [facility] 09/13 16:29 Order name: C-Reactive Protein; Complete Time: 16:29 [facility] 09/13 23:23 Order name: CREATININE WHOLE BLOOD [facility] 09/14 02:33 Order name: Glucose, Ancillary Testing [facility] 09/14 05:03 Order name: CBC with Automated Diff [facility] 09/14 05:29 Order name: Comprehensive Metabolic Panel [facility] 09/13 11:13 Order name: Saline Lock; Complete Time: 11:32 [facility] 09/13 12:19 Order name: CT Chest For PE Angio; Complete Time: 13:01 [facility] 09/14 05:29 Order name: Phosphorus [facility] 09/14 05:29 Order name: Lipid Profile [facility] 09/14 05:29 Order name: C-Reactive Protein [facility] 09/14 05:29 Order name: Magnesium [facility] 09/14 05:29 Order name: Ferritin [facility] 09/14 09:21 Order name: Glucose, Ancillary Testing [facility] 09/14 12:17 Order name: Glucose, Ancillary Testing ED[facility] 09/14 16:48 Order name: Glucose, Ancillary Testing EDMS Administered Medications: 11:35 Drug: Magnesium Sulfate 1 grams Route: IVPB; Infused Over: 1 hrs; Site: right hand; jl7 12:35 Follow up: Response: No adverse reaction; IV Status: Completed infusion jl7 11:37 Drug: SOLU-Medrol 125 mg Route: IVP; Site: right hand; jl7 13:07 Follow up: Response: No adverse reaction jl7 11:45 Drug: Xopenex (3) 1.25 mg Route: Inhalation; jl7 12:10 Follow up: Response: No adverse reaction jl7 12:55 Drug: NS 0.9% 1000 ml Route: IV; Rate: 1 bolus; Site: right hand; jl7 14:30 Follow up: Response: No adverse reaction; IV Status: Completed infusion; IV Intake: jl7 1000ml Disposition: 09/13/20 13:01 Hospitalization ordered by Willy Morgan for Observation. Preliminary diagnosis are Coronavirus infection, unspecified, Hypoxia. - Bed requested for Telemetry/MedSurg (observation). - Status is Observation. ss - Condition is Stable. - Problem is new. - Symptoms are unchanged. Addendum: 09/19/2020 19:46 Co-signature as Attending Physician, Chuck Ramos MD. r n Signatures: Dispatcher [employer] [facility] Mert Roblero PA PA jmm Nieto, Roman, MD MD rn Martinez, Eric em1 Yudelka Payan RN RN ss Leal, Jahala, RN RN jl7 Estefanía Shah Corrections: (The following items were deleted from the chart) 09/13 15:29 13:01 Hospitalization Ordered by Willy Morgan for Observation. Preliminary diagnosis eb is Coronavirus infection, unspecified; Hypoxia. Bed requested for Telemetry/MedSurg (Inpatient). Status is Observation. Condition is Stable. Problem is new. Symptoms are unchanged. jmm 09/14 18:12 09/13 15:29 09/13/2020 13:01 Hospitalization Ordered by Willy Morgan for Observation. em1 Preliminary diagnosis is Coronavirus infection, unspecified; Hypoxia. [facility]. Status is Observation. Condition is Stable. Problem is new. Symptoms are unchanged. eb 09/14 18:47 18:12 09/13/2020 13:01 Hospitalization Ordered by Willy Morgan for Observation. ss Preliminary diagnosis is Coronavirus infection, unspecified; Hypoxia. Bed requested for Telemetry/MedSurg (observation). Status is Observation. Condition is Stable. Problem is new. Symptoms are unchanged. em1
--- NOTE | 2020-09-13 13:57 | P.HP ---
Certification for Inpatient Patient admitted to: Inpatient With expected LOS: >2 Midnights Practitioner: I am a practitioner with admitting privileges, knowledge of patient current condition, hospital course, and medical plan of care. Services: Services provided to patient in accordance with Admission requirements found in Title 42 Section 412.3 of the Code of Federal Regulations Patient History Date of Service: 09/13/20 Reason for admission: Shortness of breath History of Present Illness: 60-year-old woman diagnosed with COVID 19 pneumonia about 1 week ago presented emergency department with worsening shortness of breath. This is her 3rd visit to the emergency department since her diagnosis with COVID. She was hypoxic on room air, arterial blood gas showing PO2 of 56, and a CO2 of 88% on room air. CTA thorax demonstrated worsened diffuse ground-glass infiltrates, no pulmonary embolus. Patient was in moderate respiratory distress when I saw her in the ED. Her oxygen saturation was up to 93% on 2 L of oxygen by nasal cannula. Her spouse was hospitalized last night for could be pneumonia. She does not meet criteria for sepsis. She is afebrile. Patient is admitted for further management. - Past Medical/Surgical History -: Hypothyroidism -: Hypertension -: Hyperlipidemia - Family History Mother -: Hypertension, Other (see notes) (Arthritis) - Social History Smoking Status: Never smoker Alcohol use: Yes CD- Drugs: No Place of Residence: Home Review of Systems Other: Except as documented, all other systems reviewed and negative. Physical Examination - Physical Exam General: Alert, Oriented x3, Moderate distress (When speaking.) HEENT: Atraumatic, PERRLA, Mucous membr. moist/pink, EOMI, Sclerae nonicteric Neck: Supple, JVD not distended Respiratory: Crackles/rales (Bibasilar) Cardiovascular: No edema, Regular rate/rhythm, Normal S1 S2, No murmurs Capillary refill: <2 Seconds Gastrointestinal: Normal bowel sounds, Soft and benign, Non-distended, No tenderness Musculoskeletal: No swelling, No tenderness Integumentary: No rashes, No erythema Neurological: Normal speech, Normal strength at 5/5 x4 extr - Studies Laboratory Data (last 24 hrs) 09/13/20 11:30: Sodium 138, Potassium 5.0, BUN 38 H, Creatinine 1.28, Glucose 100, Total Bilirubin 0.5, AST 109 H, ALT 155 H, Alkaline Phosphatase 99 09/13/20 11:30: WBC 16.9 H, Hgb 11.7 L, Hct 36.2, Plt Count 310 Assessment and Plan - Problems (Diagnosis) (1) Acute respiratory failure with hypoxia Current Visit: Yes Status: Acute (2) Pneumonia due to COVID-19 virus Current Visit: Yes Status: Acute (3) Hypertension Current Visit: Yes Status: Acute (4) Hypothyroidism Current Visit: Yes Status: Acute - Plan Admit patient to the medical floor. Supplemental oxygen and titrate Start IV Solu-Medrol. Supplementation with zinc, vitamin-D and vitamin-C. Consult to pulmonary. Kirsten for thromboembolism prophylaxis. Bowel eating reconcile home medications for hypothyroidism and hypertension. - Advance Directives Does patient have a Living Will: No Does patient have a Durable POA for Healthcare: No
[2020-09-13] MEDS ORDERED: ONDANSETRON 4 MG/2 ML VIAL IV PRN (15:11)
[2020-09-13] MEDS ORDERED: ACETAMINOPHEN 500 MG TAB PO PRN (15:11)
[2020-09-13 16:27] LABS: Ferritin 436.4 ng/mL (8-388)
[2020-09-13 16:28] LABS: C-Reactive Protein 74.6 mg/L (<3.00)
[2020-09-13 19:19] VITALS: BMI 47.6
[2020-09-13] MEDS ORDERED: APIXABAN 5 MG TABLET ONE (19:49)
[2020-09-13] MEDS ORDERED: METHYLPREDNISOLONE 40 MG INJ ONE (19:50)
[2020-09-13] MEDS: APIXABAN 5 MG TABLET PO SCH (20:59)
[2020-09-13] MEDS: METHYLPREDNISOLONE 40 MG INJ IV SCH (21:00)
[2020-09-14] MEDS ORDERED: ACETAMINOPHEN 500 MG TAB ONE (00:57)
[2020-09-14 04:55] LABS: Absolute Lymphocytes (CBC) 1.2 K/uL (0.7-4.9); Basophils % 0.3 % (0-1.3); Hematocrit 34.1 % (36.0-45.0); Lymphocytes % 8.7 % (15.3-44.8); MPV 7.4 fL (7.6-11.3); RBC Red Blood Cell Count 4.09 M/uL (3.86-4.86)
[2020-09-14 05:28] LABS: Albumin 2.3 g/dL (3.4-5.0); Bilirubin Total 0.4 mg/dL (0.2-1.0); C-Reactive Protein 81.2 mg/L (<3.00); Magnesium 2.3 mg/dL (1.8-2.4); Phosphorus 3.3 mg/dL (2.5-4.9); Potassium 4.4 mmol/L (3.5-5.1)
[2020-09-14] MEDS ORDERED: METHYLPREDNISOLONE 125 MG INJ ONE (08:30)
[2020-09-14] MEDS ORDERED: APIXABAN 5 MG TABLET ONE (08:30)
[2020-09-14] MEDS ORDERED: VITAMIN D 1000 UNIT TAB ONE (08:30)
[2020-09-14] MEDS ORDERED: ZINC SULFATE 220 MG CAP ONE (08:31)
[2020-09-14] MEDS: APIXABAN 5 MG TABLET PO SCH (09:00)
[2020-09-14] MEDS: METHYLPREDNISOLONE 40 MG INJ IV SCH ×2 (09:00→17:00)
[2020-09-14] MEDS: VITAMIN D 1000 UNIT TAB PO SCH (09:00)
[2020-09-14] MEDS: ZINC SULFATE 220 MG CAP PO SCH (09:00)
[2020-09-14] MEDS ORDERED: INSULIN -REGULAR HUMAN 50 UNIT/0.5 ML ML ONE (09:17)
--- NOTE | 2020-09-14 12:55 | P.CNS ---
Date of Consult: 09/14/20 Chief Complaint: Respiratory failure from berry virus History of Present Illness: Patient is a 60 years of age admitted with respiratory failure from berry virus she is still very weak, tired hypoxic diagnose about a week ago Allergies Penicillins Allergy (Verified 09/13/20 14:11) Hives/Rash Home Medications: Aspirin [Aspirin EC 81 MG] 81 mg PO DAILY 09/13/20 Azelastine/Fluticasone [Azelastin-Flutic 137-50Mcg Spr] 1 puff IH DAILY 09/13/20 Diclofenac Na [Voltaren D.R] 75 mg PO BID 09/13/20 Fluticasone/Umeclidin/Vilanter [Trelegy Ellipta 100-62.5-25] 1 each IH DAILY 09/13/20 Levothyroxine Sodium [Synthroid] 50 mcg PO DAILY 09/13/20 Montelukast [Singulair] 10 mg PO DAILY 09/13/20 Pantoprazole [Protonix Tab] 40 mg PO DAILY 09/13/20 Rosuvastatin Calcium [Crestor] 10 mg PO DAILY 09/13/20 Triamterene/Hydrochlorothiazid [Triamterene-Hctz 37.5-25 mg Tb] 1 each PO DAILY 09/13/20 - Past Medical/Surgical History -: Hypothyroidism -: Hypertension -: Hyperlipidemia -: Asthma - Family History Mother Medical History: Hypertension, Other (see notes) (Arthritis) - Social History Alcohol use: Yes CD- Drugs: No Place of Residence: Home Review of Systems General: Weakness Respiratory: Shortness of Breath Physical Examination Temp Pulse Resp BP Pulse Ox 99.4 F 67 20 126/67 93 09/14/20 12:00 09/14/20 12:00 09/14/20 12:00 09/14/20 12:00 09/14/20 12:00 - Problems (1) Pneumonia due to COVID-19 virus Current Visit: Yes Status: Acute Plan: Patient is 60 years of age admitted with respiratory failure from berry virus her is also in the hospital oxygenation satisfactory arrest experiencing significant desaturation on mild exertion continue with higher doses of steroids possible discharge tomorrow labs reviewed CRP in ferritin level is a declining will increase the dose of Solu-Medrol patient has hypoxic
--- NOTE | 2020-09-14 16:12 | P.PN ---
Subjective Date of Service: 09/14/20 Chief Complaint: Respiratory failure from berry virus Oxygen requirement increased from 3-4 L by nasal cannula. Patient reports no change in symptoms. She is reluctant to take DOAC. Physical Examination - Vital Signs Temperature: 98.3 F Blood Pressure: 144/76 Pulse: 57 Respirations: 20 Pulse Ox (%): 97 - Physical Exam General: Alert, Mild distress Neck: JVD not distended Respiratory: Crackles/rales Cardiovascular: No edema, Regular rate/rhythm, Normal S1 S2 Gastrointestinal: Soft and benign, Non-distended, No tenderness Musculoskeletal: No swelling, No tenderness Integumentary: No rashes, No erythema Neurological: Normal strength at 5/5 x4 extr Assessment And Plan - Current Problems (Diagnosis) (1) Acute respiratory failure with hypoxia Current Visit: Yes Status: Acute (2) Pneumonia due to COVID-19 virus Current Visit: Yes Status: Acute (3) Hypertension Current Visit: Yes Status: Acute (4) Hypothyroidism Current Visit: Yes Status: Acute - Plan Continue IV Solu-Medrol. Titrate oxygen Pulmonary is following Supplementation with zinc, vitamin-D and vitamin-C. Eliquis for thromboembolism prophylaxis.
[2020-09-14] MEDS ORDERED: METHYLPREDNISOLONE 40 MG INJ ONE (17:43)
[2020-09-14] MEDS ORDERED: Remdesivir 200 MG in NA CHLORIDE 0.9% 250 ML IV ONE (17:59)
[2020-09-14] MEDS: Enoxaparin 120 MG/0.8 ML SYR SQ SCH (20:09)
[2020-09-15] MEDS: METHYLPREDNISOLONE 40 MG INJ IV SCH ×3 (00:04→16:22)
[2020-09-15] MEDS ORDERED: MORPHINE 2 MG/ML SYR IV PRN (01:21)
[2020-09-15] MEDS: HYDROCODONE/APAP 7.5/325 MG TAB PO PRN ×3 (01:48→20:01)
[2020-09-15 06:13] LABS: C-Reactive Protein 25.9 mg/L (<3.00); Ferritin 335.8 ng/mL (8-388)
[2020-09-15] MEDS: ROSUVASTATIN 10 MG TAB PO SCH (08:53)
[2020-09-15] MEDS: Enoxaparin 120 MG/0.8 ML SYR SQ SCH ×2 (08:53→20:01)
[2020-09-15] MEDS: ASPIRIN EC 81 MG TAB PO SCH (08:53)
[2020-09-15] MEDS: VITAMIN D 1000 UNIT TAB PO SCH (08:53)
[2020-09-15] MEDS: MAXZIDE (HCTZ 25/TRIAMTERENE 37.5MG) TAB PO SCH (08:53)
[2020-09-15] MEDS: LEVOTHYROXINE SOD 0.05 MG TABLET PO SCH (08:53)
[2020-09-15] MEDS: PANTOPRAZOLE 40MG TABLET PO SCH (08:53)
[2020-09-15] MEDS: ZINC SULFATE 220 MG CAP PO SCH (08:53)
[2020-09-15] MEDS ORDERED: TRELEGY ELLIPTA IH SCH (09:00)
[2020-09-15] MEDS ORDERED: Remdesivir 100 MG in NA CHLORIDE 0.9% 250 ML IV SCH (09:00)
[2020-09-15] MEDS ORDERED: ENSURE HIGH PROTEIN 237 ML CAN PO PRN (10:11)
--- NOTE | 2020-09-15 11:47 | P.PN ---
Subjective Date of Service: 09/15/20 Chief Complaint: Respiratory failure from berry virus Subjective: Improving (Patient is doing better ambulating 96% on 4 L also complaining of cough) Review of Systems General: Weakness Respiratory: Cough, Shortness of Breath Physical Examination - Vital Signs Temperature: 97.8 F Blood Pressure: 141/65 Pulse: 55 Respirations: 20 Pulse Ox (%): 96 - Physical Exam General: Alert, Oriented x3 Respiratory: Clear to auscultation bilaterally Cardiovascular: No edema, Normal S1 S2 Assessment & Plan - Problems (Diagnosis) (1) Pneumonia due to COVID-19 virus Current Visit: Yes Status: Acute Plan: Respiratory failure from berry virus patient is improving as 96% on 4 L plan to discharge on prednisone 20 b.i.d. for a week on 4 L of nasal cannula oxygen follow-up with me telephone visit next week continue with full anticoagulation can hold off Remdesmir
[2020-09-15] MEDS: HYDROCODONE/CHLORPHEN 5 ML/OSYR PO PRN (11:55)
--- NOTE | 2020-09-15 15:32 | P.PN ---
Subjective Date of Service: 09/15/20 Chief Complaint: Respiratory failure from berry virus Patient states she feels better compared to yesterday. She is maintained on 4 L of oxygen by nasal cannula. Physical Examination - Vital Signs Temperature: 97.5 F Blood Pressure: 137/68 Pulse: 60 Respirations: 30 Pulse Ox (%): 94 - Physical Exam General: Alert, Mild distress Respiratory: Crackles/rales Cardiovascular: No edema, Regular rate/rhythm, Normal S1 S2 Gastrointestinal: Soft and benign, Non-distended Musculoskeletal: No swelling Integumentary: No rashes Neurological: Other (Nonfocal) Assessment And Plan - Current Problems (Diagnosis) (1) Acute respiratory failure with hypoxia Current Visit: Yes Status: Acute (2) Pneumonia due to COVID-19 virus Current Visit: Yes Status: Acute (3) Hypertension Current Visit: Yes Status: Acute (4) Hypothyroidism Current Visit: Yes Status: Acute - Plan Continue IV Solu-Medrol. She does not meet criteria for Remdesivir. Titrate oxygen Pulmonary is following Supplementation with zinc, vitamin-D and vitamin-C. Full-dose Lovenox for thromboembolism prophylaxis. hospice social worker assisting with arrangement for home oxygen. Possible discharge in am
[2020-09-15 18:03] LABS: Urine Appearance CLEAR; Urine Bilirubin NEGATIVE (NEG); Urine Blood NEGATIVE (NEG); Urine Color YELLOW; Urine Glucose NEGATIVE (NEG); Urine Protein NEGATIVE (NEG); Urine Specific Gravity 1.015 (1.005-1.030); Urine Urobilinogen 0.2 mg/dL (0.2-1.0); Urine pH 7.5 (5.0-7.0)
[2020-09-15 18:19] LABS: Urine Microscopic Reflex NO UMIC
[2020-09-16] MEDS: HYDROCODONE/APAP 7.5/325 MG TAB PO PRN ×2 (00:10→04:40)
[2020-09-16] MEDS: METHYLPREDNISOLONE 40 MG INJ IV SCH ×2 (00:23→09:40)
[2020-09-16 07:29] LABS: C-Reactive Protein 9.4 mg/L (<3.00); Ferritin 331.8 ng/mL (8-388)
[2020-09-16] MEDS: HYDROCODONE/CHLORPHEN 5 ML/OSYR PO PRN (09:40)
[2020-09-16] MEDS: ASPIRIN EC 81 MG TAB PO SCH (09:43)
[2020-09-16] MEDS: VITAMIN D 1000 UNIT TAB PO SCH (09:43)
[2020-09-16] MEDS: LEVOTHYROXINE SOD 0.05 MG TABLET PO SCH (09:44)
[2020-09-16] MEDS: Enoxaparin 120 MG/0.8 ML SYR SQ SCH (09:44)
[2020-09-16] MEDS: ROSUVASTATIN 10 MG TAB PO SCH (09:44)
[2020-09-16] MEDS: PANTOPRAZOLE 40MG TABLET PO SCH (09:44)
[2020-09-16] MEDS: MAXZIDE (HCTZ 25/TRIAMTERENE 37.5MG) TAB PO SCH (09:44)
[2020-09-16] MEDS: ZINC SULFATE 220 MG CAP PO SCH (09:44)
--- NOTE | 2020-09-16 12:03 | P.DS ---
Admission Date: 09/13/20 Discharge Date: 09/16/20 Disposition: ROUTINE DISCHARGE Discharge Condition: FAIR Reason for Admission: Respiratory failure from berry virus - Problems (1) Acute respiratory failure with hypoxia Status: Acute (2) Pneumonia due to COVID-19 virus Status: Acute (3) Hypertension Status: Acute (4) Hypothyroidism Status: Acute Brief History of Present Illness: 60-year-old woman diagnosed with COVID 19 pneumonia about 1 week ago presented emergency department with worsening shortness of breath. This is her 3rd visit to the emergency department since her diagnosis with COVID. She was hypoxic on room air, arterial blood gas showing PO2 of 56, and a CO2 of 88% on room air. CTA thorax demonstrated worsened diffuse ground-glass infiltrates, no pulmonary embolus. Patient was in moderate respiratory distress when I saw her in the ED. Her oxygen saturation was up to 93% on 2 L of oxygen by nasal cannula. Her spouse was hospitalized last night for could be pneumonia. She does not meet criteria for sepsis. She is afebrile. Patient is admitted for further management. Hospital Course: Patient admitted to the medical floor and started on steroid therapy, vitamin B and C supplementation and zinc supplementation. She was maintained on oxygen by nasal cannula. Patient was stable on oxygen by nasal cannula dry the hospitalist. Her respiratory condition did not progress. She was placed on ful l-dose Lovenox for thromboembolism prophylaxis and transition to Xarelto on discharge. Patient deemed clinically stable for discharge. Vital Signs/Physical Exam: Temp Pulse Resp BP Pulse Ox 97.5 F 84 20 133/66 93 09/16/20 08:00 09/16/20 08:00 09/16/20 08:00 09/16/20 08:00 09/16/20 08:00 General: Alert, In no apparent distress Respiratory: Clear to auscultation bilaterally, Normal air movement Cardiovascular: No edema, Regular rate/rhythm Gastrointestinal: Soft and benign, Non-distended Musculoskeletal: No swelling Integumentary: No rashes Neurological: Other (No focal deficit) Laboratory Data at Discharge: WBC 14.3 K/uL (4.3-10.9) H D 09/14/20 04:39 Hgb 11.3 g/dL (12.0-15.0) L 09/14/20 04:39 Hct 34.1 % (36.0-45.0) L 09/14/20 04:39 Plt Count 309 K/uL (152-406) 09/14/20 04:39 Sodium 137 mmol/L (136-145) 09/14/20 04:39 Potassium 4.4 mmol/L (3.5-5.1) 09/14/20 04:39 BUN 26 mg/dL (7-18) H 09/14/20 04:39 Creatinine 0.94 mg/dL (0.55-1.3) 09/14/20 04:39 Glucose 144 mg/dL (74-106) H 09/14/20 04:39 Phosphorus 3.3 mg/dL (2.5-4.9) 09/14/20 04:39 Magnesium 2.3 mg/dL (1.8-2.4) 09/14/20 04:39 Total Bilirubin 0.4 mg/dL (0.2-1.0) 09/14/20 04:39 AST 53 U/L (15-37) H 09/14/20 04:39 ALT 118 U/L (12-78) H 09/14/20 04:39 Alkaline Phosphatase 101 U/L (45-117) 09/14/20 04:39 Triglycerides 117 mg/dL (<150) 09/14/20 04:39 Cholesterol 126 mg/dL (<200) 09/14/20 04:39 HDL Cholesterol 33 mg/dL (40-60) L 09/14/20 04:39 Cholesterol/HDL Ratio 3.82 09/14/20 04:39 Home Medications: Aspirin [Aspirin EC 81 MG] 81 mg PO DAILY 09/13/20 Azelastine/Fluticasone [Azelastin-Flutic 137-50Mcg Spr] 1 puff IH DAILY 09/13/20 Fluticasone/Umeclidin/Vilanter [Trelegy Ellipta 100-62.5-25] 1 each IH DAILY 09/13/20 Levothyroxine Sodium [Synthroid] 50 mcg PO DAILY 09/13/20 Montelukast [Singulair*] 10 mg PO DAILY 09/13/20 Pantoprazole [Protonix Tab*] 40 mg PO DAILY 09/13/20 Rosuvastatin Calcium [Crestor] 10 mg PO DAILY 09/13/20 Triamterene/Hydrochlorothiazid [Triamterene-Hctz 37.5-25 mg Tb] 1 each PO DAILY 09/13/20 Cholecalciferol (Vitamin D3) [Vitamin D 1000 Iu Tab*] 2,000 unit PO DAILY #30 tab 09/16/20 Ensure High Protein 237 ml PO BID PRN #30 can 09/16/20 Rivaroxaban [Xarelto] 20 mg PO DAILY #30 tablet 09/16/20 Zinc Sulfate [Zinc Sulfate*] 220 mg PO DAILY #30 cap 09/16/20 predniSONE [Deltasone] 20 mg PO BID #14 tab 09/16/20 New Medications: Ensure High Protein 237 ml PO BID PRN #30 can PRN Reason: If PO intake is < 50% predniSONE [Deltasone] 20 mg PO BID #14 tab Cholecalciferol (Vitamin D3) [Vitamin D 1000 Iu Tab*] 2,000 unit PO DAILY #30 tab Rivaroxaban [Xarelto] 20 mg PO DAILY #30 tablet Zinc Sulfate [Zinc Sulfate*] 220 mg PO DAILY #30 cap Diet: AHA Activity: Ad nichelle Followup: Brian Whelan MD [Primary Care Provider] - 1-2 Weeks Donny Castillo MD [ACTIVE - CAN ADMIT] - 1 Week Time spent managing pt's care (in minutes): 37
--- NOTE | 2020-09-16 17:11 | P.PN ---
Subjective Date of Service: 09/16/20 Chief Complaint: Respiratory failure from berry virus Patient states she continues to feel better. She states she has been coughing intermittently. She has been stable on 4 L of oxygen by nasal cannula. Physical Examination - Vital Signs Temperature: 97.5 F Blood Pressure: 144/68 Pulse: 50 Respirations: 18 Pulse Ox (%): 94 - Physical Exam General: Alert, In no apparent distress, Oriented x3 HEENT: Mucous membr. moist/pink Respiratory: Crackles/rales Cardiovascular: No edema, Regular rate/rhythm Gastrointestinal: Soft and benign, Non-distended Musculoskeletal: No swelling Integumentary: No rashes Neurological: Other Assessment And Plan - Current Problems (Diagnosis) (1) Acute respiratory failure with hypoxia Current Visit: Yes Status: Acute (2) Pneumonia due to COVID-19 virus Current Visit: Yes Status: Acute (3) Hypertension Current Visit: Yes Status: Acute (4) Hypothyroidism Current Visit: Yes Status: Acute - Plan Continue IV Solu-Medrol. Wean oxygen as tolerated. Supplementation with zinc, vitamin-D and vitamin-C. Full-dose Lovenox for thromboembolism prophylaxis. Will transition to Xarelto on discharge. Patient does not want to take Eliquis. [place] worker assisting with arrangement for home oxygen. Stable for discharge. Waiting for oxygen to be delivered before discharge.
[2020-09-16 19:55] VITALS: O2SAT 94
[2020-09-16 21:21] VITALS: BP 131/76; TEMP 97.1
== END 2020-09-16 20:15 | disposition home or self-care (01) | DRG 177 ==
LOC: ER 11:06 → ERHOLD 13:50 → 4TH 09-14 18:23
PROVIDERS: ADMIT Internal Medicine; ATTEND Internal Medicine
DX: U07.1 COVID-19 (principal); J96.01 Acute respiratory failure with hypoxia; J12.82 Pneumonia due to coronavirus disease 2019; I10 Essential (primary) hypertension; E78.5 Hyperlipidemia, unspecified; E03.9 Hypothyroidism, unspecified; J45.909 Unspecified asthma, uncomplicated; Z79.82 Long term (current) use of aspirin; Z79.52 Long term (current) use of systemic steroids; Z79.890 Hormone replacement therapy; Z79.899 Other long term (current) drug therapy; Z88.0 Allergy status to penicillin
CPT/HCPCS: 36415; 71275; 80053; 80061; 81003; 82565; 82728; 82805; 82947; 83605; 83735; 84100; 84145; 85025; 86140; 87040; 94760; 96361; 96365; 96375; 99285; J1650; J2920; J2930; J3475; J7030; Q9967